=== PATIENT | female | born 1970 | race Two or more races ===

== ENCOUNTER 2025-03-20 06:00 | Day surgery (SDC) | payer OTHER ==
[2025-03-16 08:18] LABS: URINE APPEARANCE Clear; URINE BILIRRUBIN Negative (NEGATIVE); URINE BLOOD Negative; URINE COLOR Yellow; URINE GLUCOSE Negative (NEGATIVE); URINE KETONE Negative (NEGATIVE); URINE LEUKOCYTE Negative; URINE NITRATE Negative; URINE PROTEIN Negative (NEGATIVE); URINE UROBILINOGEN 0.2 E.U./dl
[2025-03-16 08:19] VITALS: BP 118/84
[2025-03-16 08:21] LABS: BASO % 0.6 % (0.1-1.2); EOS # 0.20 (0.04-0.54); EOS % 3.7 % (0.7-7.0); LYMPH # 1.71 (1.18-3.74); LYMPH % 32.0 % (19.3-53.1); MEAN PLATELET VOLUME 10.60 fl (9.4-12.4); MONO # 0.42 (0.24-0.82); MONO % 7.9 % (4.7-12.5); NEUT # 2.96 (1.56-6.13); NEUT % 55.4 % (34.0-71.1); RED CELL DISTRIBUTION WIDTH 12.7 % (11.6-14.4); URINE BACTERIA 265.0 uL (0.0-1933); URINE EPITHELIAL CELLS 11.9 uL (0.0-38.8); URINE RBC 2.0 uL (0.0-20.8); URINE WBC 10.6 uL (0.0-23.2)
[2025-03-16 08:37] LABS: INR 0.96
[2025-03-16 08:52] LABS: ALT/SGPT 32.0 U/L (12-78); AST/SGOT 18.0 U/L (15-37); BILIRUBIN TOTAL 0.64 mg/dL (0.3-1.2); BUN CREA RATIO 24.0 (7.0-25.0); CREATININE SERUM 0.63 mg/dL (0.55-1.02); GFR 98.47; GLOBULINA 2.8 G/DL (2.4-3.5); GLUCOSE FASTING 94.0 mg/dL (65-100); OSMOLALITY SERUM 284.0 MOSM/KG (275-295)
[2025-03-16 09:12] LABS: URINE CAST 0.00 uL (0.0-1.40)
[~2025-03-20] VITALS: Ht 157.5 cm; Wt 77.1 kg
[2025-03-20] MEDS ORDERED: POVIDONE-IODINE 118 ML BOTT TOP ONE (10:00)
[2025-03-20] MEDS ORDERED: PROMETHAZINE HCL 50 MG/ML AMPUL IM PRN (12:45)
[2025-03-20] MEDS ORDERED: MORPHINE SULFATE 4 MG/ML VIAL IV PRN (12:45)
== END 2025-03-20 12:20 | disposition home or self-care (01) ==
LOC: CIR.AMB 06:00
PROVIDERS: ATTEND Student in an Organized Health Care Education/Training Program
DX: N85.02 Endometrial intraepithelial neoplasia [EIN] (principal); N95.0 Postmenopausal bleeding